=== PATIENT | female | born 1985 | race Caucasian/White ===

== ENCOUNTER 2017-01-28 09:54 | Emergency (ER) | payer MEDICARE, OTHER ==
[~2017-01-28] VITALS: Ht 165.1 cm; Wt 117.5 kg
[~2017-01-28 09:54] MED LIST: LACT PO; METR-1 PO; PRENCAP10 PO
[2017-01-28 09:59] VITALS: BP 129/80; PULSE 96; RESP 13; TEMP 97.9; O2SAT 97
--- NOTE | 2017-01-28 10:13 | PD ---
HPI Chief Complaint: Injury Time Seen by Provider: 10:09 Travel History International Travel<30 days: No Contact w/Intl Traveler<30days: No Traveled to known affect area: No History of Present Illness HPI 31-year-old female presents to the emergency department for evaluation right ankle pain 11 days. Patient states 11 days ago she rolled her ankle. She has been ambulatory without difficulty. Is concerned because the ankle is still sore and mildly swollen. Denies any new injury. Denies any limitations range of motion. Denies any alterations in sensation. She has no other symptoms to report. History Past Medical Histgory ?: LMP: 05/18/16 Social History Alcohol Use: No Tobacco Use: No (quit) Allergies-Medications (Allergen,Severity, Reaction): Coded Allergies: No Known Allergies (Unverified , 01/28/17) Reported Meds & Prescriptions Reported Meds & Active Scripts Active Lactinex (Lactobacillus Acidophilus) 1 Tab Tab 1 Tab PO Q12HR 31 Days Flagyl (Metronidazole) 500 Mg Tab 500 Mg PO Q8HR 12 Days Reported Multi +Dha (Ferrous Fumarate/Vit C/Folic Acid) + Cap 1 Cap PO DAILY Review of Systems Except as stated in HPI: all other systems reviewed are Neg Physical Exam Narrative GENERAL: Well-nourished, well-developed female patient, ambulatory with a nonantalgic gait, in flip-flops, in no acute distress SKIN: Focused skin assessment warm/dry. HEAD: Normocephalic. EYES: No scleral icterus. No injection or drainage. NECK: Supple, trachea midline. No JVD or lymphadenopathy. CARDIOVASCULAR: Regular rate and rhythm without murmurs, gallops, or rubs. RESPIRATORY: Breath sounds equal bilaterally. No accessory muscle use. EXTREMITY: The right ankle is mildly swollen and tender over the lateral aspect but the skin is intact and there is no ligamentous instability. There is no deformity. There is no tenderness over the malleoli are aspect of the right ankle. The foot and toes are warm and well-perfused. Sensation to pain and light touch is intact. Data Data Last Documented VS Vital Signs Date Time Temp Pulse Resp B/P (MAP) Pulse Ox O2 Delivery O2 Flow Rate FiO2 01/28/17 09:59 97.9 96 13 129/80 (96) 97 MDM Medical Screen Exam Complete: Yes Emergency Medical Condition: No Differential Diagnosis r ankle sprain Narrative Course 31-year-old female presents to emergency department for evaluation right ankle pain for 11 days. Patient appears without distress. Per [place] ankle rules, x- ray imaging will not be done at this time. This is likely a sprain. I have counseled the patient on care and encouraged her to follow-up with primary care provider. At this time there are no urgent or emergent needs medical intervention identified. A medical screening exam was performed: At the time of evaluation the presenting medical condition was determined not to be of an emergent nature. The patient was given the option of receiving additional care, but declined. Patient was given options for additional community resources from which to obtain care. The Patient Has Been advised to seek medical attention for their presenting complaint. The patient has been advised to return to the ER at any time if an emergent condition develops. Primary Impression: Encounter for medical screening examination Condition: Sarah Dumont Jan 28, 2017 10:13
== END 2017-01-28 10:27 | disposition left against medical advice (07) ==
LOC: NEPK 09:54
DX: M25.571 Pain in right ankle and joints of right foot (principal)
CPT/HCPCS: 99281